=== PATIENT | female | born 1975 | race Caucasian/White ===

== ENCOUNTER 2018-12-16 07:23 | Emergency (ER) | payer MEDICAID ==
[2018-12-16 09:02] LABS: Basophils # (Auto) 0.1 K/mm3 (0.0-0.1); Basophils % (Auto) 1.1 % (0.0-1.8); Eosinophils % (Auto) 0.2 % (0.0-4.3); Hematocrit 37.2 % (30.3-42.9); Hemoglobin 12.8 gm/dl (10.1-14.3); Lymphocytes # (Auto) 2.1 K/mm3 (1.2-5.4); Lymphocytes % (Auto) 20.6 % (13.4-35.0); Mean Corpuscular HGB Conc 34 % (30-34); Mean Corpuscular Volume 90 fl (79-97); Monocytes # (Auto) 0.6 K/mm3 (0.0-0.8); Monocytes % (Auto) 5.9 % (0.0-7.3); Platelet Count 415 K/mm3 (140-440); Red Blood Count 4.14 M/mm3 (3.65-5.03); Red Cell Distribution Width 13.4 % (13.2-15.2)
[2018-12-16] MEDS ORDERED: GEODON IM ONE (09:02)
[2018-12-16 09:07] LABS: BUN/Creatinine Ratio 13; Blood Urea Nitrogen 8 mg/dL (7-17); Calcium 9.1 mg/dL (8.4-10.2); Hemolysis Index 53
[2018-12-16] MEDS ORDERED: WATER FOR INJ Sterile (PF) 10 ML ONE (09:09)
[2018-12-16] MEDS ORDERED: K-DUR PO ONE (09:41)
--- NOTE | 2018-12-16 09:41 | Emergency Department Report ---
HPI - HPI HPI: Mrs. Zamarripa presents to the ER 7 days ago for aggressive behavior [facility]. The patient's 1013 has today and will not be extended. Our psychiatric team recommended referral to [facility] for outpatient psychiatric services. She is stable for discharge. Patient did not have any q uestions or concerns upon my brief evaluation at discharge. <SKYLAR MENA - Last Filed: 12/23/18 13:34> - HPI HPI: 43-year-old female presents to the emergency department, brought in by law enforcement, from her penitentiary for a mental health evaluation. Per law enforcement, and through triage, the patient was acting aggressive and destroying property at the penitentiary that she was previously placed in. The patient denies living in a penitentiary or arriving by law enforcement. When asked why she is at the emergency department, the patient says "there are a lot of people that do not like me who are trying to hurt me and steal my stuff." The patient also says "I am allergic to people." The patient then says that she is going to leave the [facility] and go to [place] and when asked if there is some type of family or support in [place], the patient says "there is snow skiing." Patient displays some rambling and pressured speech. She denies having any medical or psychiatric history but there must be a reason for her living in a penitentiary. <CASH SOLORIO S - Last Filed: 12/25/18 08:25> - General Chief Complaint: Psych Time Seen by Provider: 12/16/18 07:45 ED Past Medical Hx <SKYLAR MENA - Last Filed: 12/23/18 13:34> - Social History Smoking Status: Unknown if ever smoked <CASH SOLORIO - Last Filed: 12/25/18 08:25> - Medications Home Medications: Home Medications Medication Instructions Recorded Confirmed Last Taken Type Unobtainable 12/16/18 12/16/18 Unknown History ED Review of Systems ROS: Stated complaint: MH Other details as noted in HPI <SKYLAR MENA - Last Filed: 12/23/18 13:34> ROS: Stated complaint: MH Other details as noted in HPI Comment: All other systems reviewed and negative Constitutional: denies: chills, fever Eyes: denies: eye pain, vision change ENT: denies: ear pain, throat pain Respiratory: denies: cough, shortness of breath Cardiovascular: denies: chest pain, palpitations Gastrointestinal: denies: abdominal pain, vomiting Genitourinary: denies: dysuria, discharge Musculoskeletal: denies: back pain, arthralgia Neurological: denies: headache, weakness Psychiatric: denies: homicidal thoughts, suicidal thoughts <CASH SOLORIO - Last Filed: 12/25/18 08:25> Physical Exam - Physical Exam Vital Signs: Vital Signs 12/16/18 12/16/18 12/16/18 07:41 13:00 19:00 Temperature 98 F 97.5 F L 98.5 F Pulse Rate 118 H 86 86 Respiratory 18 18 16 Rate Blood Pressure 123/80 Blood Pressure 100/66 132/86 [Right] O2 Sat by Pulse 96 98 99 Oximetry 12/17/18 12/17/18 12/17/18 01:00 07:45 14:35 Temperature 97.0 F L 98.2 F 97.7 F Pulse Rate 98 H 110 H 80 Respiratory 18 20 18 Rate Blood Pressure Blood Pressure 114/66 119/74 90/62 [Right] O2 Sat by Pulse 100 98 100 Oximetry 12/17/18 12/18/18 12/18/18 20:32 02:06 09:22 Temperature 98.6 F 98.3 F 98.3 F Pulse Rate 98 H 77 78 Respiratory 18 18 Rate Blood Pressure Blood Pressure 151/96 112/64 140/81 [Right] O2 Sat by Pulse 99 98 97 Oximetry 12/18/18 12/19/18 12/19/18 12:00 02:11 07:00 Temperature 98.4 F 97.6 F 98.1 F Pulse Rate 89 78 78 Respiratory 18 16 18 Rate Blood Pressure Blood Pressure 121/80 119/73 122/80 [Right] O2 Sat by Pulse 98 96 96 Oximetry 12/19/18 12/19/18 12/20/18 13:00 20:00 01:30 Temperature 98.5 F 98.4 F 97.9 F Pulse Rate 85 75 83 Respiratory 18 18 18 Rate Blood Pressure Blood Pressure 134/98 138/84 105/64 [Right] O2 Sat by Pulse 96 99 96 Oximetry 12/20/18 12/20/18 12/21/18 07:00 21:00 01:00 Temperature 98.5 F 98 F 97.8 F Pulse Rate 73 95 H 93 H Respiratory 18 20 18 Rate Blood Pressure Blood Pressure 115/75 113/80 110/70 [Right] O2 Sat by Pulse 95 96 96 Oximetry 12/21/18 12/21/18 12/21/18 08:40 16:50 19:35 Temperature 98.6 F 98.2 F 97.7 F Pulse Rate 87 96 H 89 Respiratory 18 18 18 Rate Blood Pressure Blood Pressure 100/61 90/48 101/59 [Right] O2 Sat by Pulse 95 98 100 Oximetry 12/22/18 12/22/18 12/22/18 00:00 07:00 13:00 Temperature 98.1 F 97.4 F L 97.2 F L Pulse Rate 71 82 88 Respiratory 18 18 18 Rate Blood Pressure Blood Pressure 131/78 105/60 97/62 [Right] O2 Sat by Pulse 100 96 Oximetry 12/22/18 12/23/18 12/23/18 20:14 01:05 09:28 Temperature 98.0 F 98.2 F 97.6 F Pulse Rate 81 79 78 Respiratory 18 16 Rate Blood Pressure Blood Pressure 104/62 114/78 134/86 [Right] O2 Sat by Pulse 100 97 99 Oximetry <SKYLAR MENA - Last Filed: 12/23/18 13:34> - Physical Exam Vital Signs: Vital Signs 12/16/18 07:41 Temperature 98 F Pulse Rate 118 H Respiratory 18 Rate Blood Pressure 123/80 O2 Sat by Pulse 96 Oximetry Physical Exam: GENERAL: The patient is well-developed well-nourished. HENT: Normocephalic. Atraumatic. Patient has moist mucous membranes. EYES: Extraocular motions are intact. NECK: Supple. Trachea is midline. CHEST/LUNGS: Clear to auscultation. There is no respiratory distress noted. HEART/CARDIOVASCULAR: Regular. There is no tachycardia. There is no murmur. ABDOMEN: There is no abdominal distention. SKIN: Skin is warm and dry. NEURO: The patient is awake, alert, and oriented. The patient is cooperative. The patient has no focal neurologic deficits. Normal speech. MUSCULOSKELETAL: There is no tenderness or deformity. There is no limitation range of motion. There is no evidence of acute injury. PSYCH: Patient expresses delusions and paranoia. She has some pressured speech and tangential thoughts. <SHEAR,CASH S - Last Filed: 12/25/18 08:25> ED Course Vital Signs 12/16/18 12/16/18 12/16/18 07:41 13:00 19:00 Temperature 98 F 97.5 F L 98.5 F Pulse Rate 118 H 86 86 Respiratory 18 18 16 Rate Blood Pressure 123/80 Blood Pressure 100/66 132/86 [Right] O2 Sat by Pulse 96 98 99 Oximetry 12/17/18 12/17/18 12/17/18 01:00 07:45 14:35 Temperature 97.0 F L 98.2 F 97.7 F Pulse Rate 98 H 110 H 80 Respiratory 18 20 18 Rate Blood Pressure Blood Pressure 114/66 119/74 90/62 [Right] O2 Sat by Pulse 100 98 100 Oximetry 12/17/18 12/18/18 12/18/18 20:32 02:06 09:22 Temperature 98.6 F 98.3 F 98.3 F Pulse Rate 98 H 77 78 Respiratory 18 18 Rate Blood Pressure Blood Pressure 151/96 112/64 140/81 [Right] O2 Sat by Pulse 99 98 97 Oximetry 12/18/18 12/19/18 12/19/18 12:00 02:11 07:00 Temperature 98.4 F 97.6 F 98.1 F Pulse Rate 89 78 78 Respiratory 18 16 18 Rate Blood Pressure Blood Pressure 121/80 119/73 122/80 [Right] O2 Sat by Pulse 98 96 96 Oximetry 12/19/18 12/19/18 12/20/18 13:00 20:00 01:30 Temperature 98.5 F 98.4 F 97.9 F Pulse Rate 85 75 83 Respiratory 18 18 18 Rate Blood Pressure Blood Pressure 134/98 138/84 105/64 [Right] O2 Sat by Pulse 96 99 96 Oximetry 12/20/18 12/20/18 12/21/18 07:00 21:00 01:00 Temperature 98.5 F 98 F 97.8 F Pulse Rate 73 95 H 93 H Respiratory 18 20 18 Rate Blood Pressure Blood Pressure 115/75 113/80 110/70 [Right] O2 Sat by Pulse 95 96 96 Oximetry 12/21/18 12/21/18 12/21/18 08:40 16:50 19:35 Temperature 98.6 F 98.2 F 97.7 F Pulse Rate 87 96 H 89 Respiratory 18 18 18 Rate Blood Pressure Blood Pressure 100/61 90/48 101/59 [Right] O2 Sat by Pulse 95 98 100 Oximetry 12/22/18 12/22/18 12/22/18 00:00 07:00 13:00 Temperature 98.1 F 97.4 F L 97.2 F L Pulse Rate 71 82 88 Respiratory 18 18 18 Rate Blood Pressure Blood Pressure 131/78 105/60 97/62 [Right] O2 Sat by Pulse 100 96 Oximetry 12/22/18 12/23/18 12/23/18 20:14 01:05 09:28 Temperature 98.0 F 98.2 F 97.6 F Pulse Rate 81 79 78 Respiratory 18 16 Rate Blood Pressure Blood Pressure 104/62 114/78 134/86 [Right] O2 Sat by Pulse 100 97 99 Oximetry <SKYLAR MENA - Last Filed: 12/23/18 13:34> Vital Signs 12/16/18 07:41 Temperature 98 F Pulse Rate 118 H Respiratory 18 Rate Blood Pressure 123/80 O2 Sat by Pulse 96 Oximetry <CASH SOLORIO - Last Filed: 12/25/18 08:25> ED Medical Decision Making - Lab Data Result diagrams: 12/16/18 08:29 12/16/18 08:29 <SKYLAR MENA - Last Filed: 12/23/18 13:34> - Lab Data Result diagrams: 12/16/18 08:29 12/16/18 08:29 - Medical Decision Making Patient presents from her penitentiary after allegedly becoming very agitated and destroying some of the property. The patient denies being at a penitentiary, arriving by law enforcement, having any psychiatric history. She expresses some obvious delusions and paranoia. She has some pressured speech and tangential thoughts. Overall the patient appears to be having some acute psychosis. For this reason she has been made a 1013. She required some Geodon, then Ativan, and some Benadryl to try and treat her agitation and psychosis. Labs have been mostly unremarkable except for some mild hypokalemia that was replaced with potassium chloride. Vital signs stable throughout her ED course. The patient is medically clear for psychiatric placement. - Differential Diagnosis bipolar disorder, schizophrenia, schizoaffective, substance abuse <CASH SOLORIO - Last Filed: 12/25/18 08:25> Critical care attestation.: If time is entered above; I have spent that time in minutes in the direct care of this critically ill patient, excluding procedure time. <SKYLAR MENA - Last Filed: 12/23/18 13:34> Critical Care Time: No Critical care attestation.: If time is entered above; I have spent that time in minutes in the direct care of this critically ill patient, excluding procedure time. <CASH SOLORIO - Last Filed: 12/25/18 08:25> ED Disposition Is pt being admited?: No Does the pt Need Aspirin: No <SKYLAR MENA - Last Filed: 12/23/18 13:34> Is pt being admited?: No Time of Disposition: 15:27 <CASH SOLORIO - Last Filed: 12/25/18 08:25> Clinical Impression: Acute psychosis, Aggressive behavior Disposition: DC-01 TO HOME OR SELFCARE Condition: Stable Referrals: DONNA BUSTOS MD [Primary Care Provider] - 3-[address] [facility] [Outside] - 3-5 Days
[2018-12-16 10:51] LABS: Bacteria,Urine 1+ /HPF (Negative); Bilirubin,Urine NEG (Negative); Blood,Urine NEG (Negative); Color,Urine Yellow (Yellow); Mucus,Urine 2+ /HPF; Protein,Urine <15 mg/dL mg/dL (Negative); Urobilinogen,Urine < 2.0 mg/dL (<2.0)
[2018-12-16 10:56] LABS: Amphetamine Screen,Urine PRESUMPTIVE NEGATIVE; Benzodiazepines Screen,Urine PRESUMPTIVE NEGATIVE; Cannabinoid Screen,Urine PRESUMPTIVE NEGATIVE; Cocaine Screen,Urine PRESUMPTIVE NEGATIVE; Methadone Screen,Urine PRESUMPTIVE NEGATIVE; Opiate Screen,Urine PRESUMPTIVE NEGATIVE
[2018-12-16] MEDS ORDERED: ATIVAN IM ONE (11:16)
[2018-12-16] MEDS ORDERED: BENADRYL PO ONE (13:25)
[2018-12-17] MEDS ORDERED: GEODON IM ONE (12:57)
[2018-12-17] MEDS ORDERED: ATIVAN IV ONE (12:58)
[2018-12-17] MEDS ORDERED: WATER FOR INJ Sterile (PF) 10 ML ONE (13:04)
--- NOTE | 2018-12-17 15:20 | Consultation ---
History of Present Illness - Reason for Consult Consult date: 12/17/18 Reason for consult: psychiatric evaluation - Chief Complaint Chief complaint: "I want to sit out here." - History of Present Psychiatric Illness 43yo SWF who presents to [facility] ED via law enforcement for displaying aggressive behavior and destroying property at the long-term. She denies living in a long-term or that she was brought to ED by law enforceme nt. She states people are taking her belongings and asked what we are going to do about it. She states she lives alone and would not elaborate on who might be taking her belongings. She states, "I don't have mental health problems." She states she is "allergic to all medicines." She states she will not take medication. Prior to receiving PRN geodon, ativan, and benadryl, she was reported to exhibit loud, pressured speech with tangential thoughts and intermittent loose associations. Currently she is tangential, disorganized, and requires redirection. She is also suspicious of this provider's intentions in asking her questions. Medications and Allergies Allergies Allergy/AdvReac Type Severity Reaction Status Date / Time No Known Allergies Allergy Unverified 12/17/18 12:57 Home Medications Medication Instructions Recorded Confirmed Last Taken Type Unobtainable 12/16/18 12/16/18 Unknown History Past psychiatric history - Past Medical History Past Medical History: other ("I have kidney failure; I've been working since I was 16, I'm tired, that's why.") - past Psychiatric treatment and history psychiatric treatment history: lives in a long-term admits to having "disabilities" but would not discuss - Social History Social history: other (long-term. denies alcohol, drug, or tobacco use) Mental Status Exam - Vital signs Last Vital Signs Temp 98.2 F 12/17/18 07:45 Pulse 110 H 12/17/18 07:45 Resp 20 12/17/18 07:45 BP 119/74 12/17/18 07:45 Pulse Ox 98 12/17/18 07:45 - Exam Orientation: time, place, person Affect: agitated Mood: congruent with affect Thought content: delusions, paranoia Thought Process: Tangential, Disorganized Perceptions: other (would not discuss) Speech: normal rate and pattern Concentration: distractible Motor activity: restless Level of consciousness: alert Sleep Symptoms: Difficulty Falling Asleep ("I don't get rest.") Interaction: guarded, defensive Results Result Diagrams: 12/16/18 08:29 12/16/18 08:29 All other labs normal. Assessment and Plan Assessment and plan: Impression: psychosis unspecified ddx: schizophrenia, bipolar with psychosis She does not have Medicare psych days which indicates a history of multiple prior psych admissions. BMP was unremarkable except for potassium of 3.2 (treated with K-Dur). reports of "kidney failure" is unsubstantiated. delusional UDS neg ETOH <0.01 Recommendations: start antipsychotic, Seroquel 100mg hs, but she refuses dispo: inpatient psychiatric facility will staff with Dr. Ordonez
[2018-12-18 08:43] LABS: Chol/HDL Ratio 4.22 %
--- NOTE | 2018-12-18 09:01 | Progress Note ---
Subjective - Reason for Consult Consult date: 12/18/18 Reason for consult: Psychiatry Follow-up - Chief Complaint Chief complaint: "They are taking my belongings" 43 y.o. white female who presented to the ER for aggressive behavior at her residence. Today the patient was irritable during the assessment. She is adamant that someone or something is taking her belongings. She had to be redirected several times to keep her on topic. Overall, the patient is a poor historian, No gestures of SI/HI's. Mental Status Exam - Vital signs Last Vital Signs Temp 98.3 F 12/18/18 02:06 Pulse 77 12/18/18 02:06 Resp 18 12/18/18 02:06 BP 112/64 12/18/18 02:06 Pulse Ox 98 12/18/18 02:06 - Exam Narrative exam: MSE: Appearance: in hospital attire Behavior: regular eye contact Speech: regular rate and tone Mood: irritable Affect: congruent to mood Thought Process: tangential Thought Content: no gestures of SI/HI's, delusional Motor Activity: laying in bed Cognition: A/O x3 Insight: poor Judgment: unable to assess Assessment and Plan Impression: Unspecified Psychosis. Today the patient was irritable during the assessment. DDx: schizophrenia, Bipolar DO with psychosis Recommendation/Plan: Continue 1013 and increase Seroquel to 200 mg PO HS for psychosis. Attempted to discuss possible metabolic side effects of Seroquel with the patient. Also, attempted to discuss with the patient her abnormal Lipid Panel. Dispo: The patient was referred to inpatient psy services. Staffed with Dr Roxana Ordonez.
[2018-12-18] MEDS ORDERED: ATIVAN ONE (11:57)
[2018-12-18] MEDS ORDERED: ATIVAN PO ONE (12:03)
[2018-12-18] MEDS ORDERED: GEODON IM ONE ×2 (13:42→13:49)
--- NOTE | 2018-12-19 10:52 | Progress Note ---
Subjective - Reason for Consult Consult date: 12/19/18 Reason for consult: Psychiatry Follow-up - Chief Complaint Chief complaint: "Hello" 43 y.o. white female who presented to the ER for aggressive behavior at her residence. Today the patient was calm during the assessment. Her answers to questions were not logical. She has loose associations throughout the interview. Overall, the patient is a poor historian, No gestures of SI/HI's. Mental Status Exam - Vital signs Last Vital Signs Temp 98.1 F 12/19/18 07:00 Pulse 78 12/19/18 07:00 Resp 18 12/19/18 07:00 BP 122/80 12/19/18 07:00 Pulse Ox 96 12/19/18 07:00 - Exam Narrative exam: MSE: Appearance: in hospital attire Behavior: regular eye contact Speech: regular rate and tone Mood: "okay" Affect: congruent to mood Thought Process: tangential Thought Content: no gestures of SI/HI's, delusional Motor Activity: laying in bed Cognition: A/O x3 Insight: poor Judgment: poor Assessment and Plan Impression: Unspecified Psychosis. Today the patient was calm during the assessment. DDx: schizophrenia, Bipolar DO with psychosis Recommendation/Plan: Continue 1013 and Seroquel 200 mg PO HS for psychosis. Attempted to discuss possible metabolic side effects of Seroquel with the patient. Also, attempted to discuss with the patient her abnormal Lipid Panel. Dispo: The patient was referred to inpatient psy services. Will staff with Dr Roxana Ordonez.
[2018-12-19] MEDS ORDERED: GEODON IM ONE ×2 (17:35→17:50)
[2018-12-20] MEDS ORDERED: ATIVAN ONE (13:52)
[2018-12-20] MEDS ORDERED: WATER FOR INJ Sterile (PF) 10 ML ONE (13:54)
[2018-12-20] MEDS ORDERED: GEODON IM ONE ×2 (13:54→13:58)
[2018-12-20] MEDS ORDERED: ATIVAN IM ONE (13:58)
--- NOTE | 2018-12-20 18:09 | Progress Note ---
Subjective - Reason for Consult Consult date: 12/20/18 Reason for consult: Psychiatric Follow-up Evaluation - Chief Complaint Chief complaint: Patient asleep. Patient is a 43 y.o. white female who presented to the ER for aggressive behavior at her residence. Today the patient is asleep. Provider attempted to awake patient on several occasions, but she refuses to awake and allow provider to assess her. Per assigned RN, patient was agitated earlier in the day. She has made several attempts to elope. Received PRN at approximately 1400. Mental Status Exam - Vital signs Last Vital Signs Temp 98.5 F 12/20/18 07:00 Pulse 73 12/20/18 07:00 Resp 18 12/20/18 07:00 BP 115/75 12/20/18 07:00 Pulse Ox 95 12/20/18 07:00 - Exam Narrative exam: Unable to assess due to patient's condition. Assessment and Plan Impression: Unspecified Psychosis. Today the patient is asleep, refuses to awake after several attempts. Provider unable to assess. DDx: schizophrenia, Bipolar DO with psychosis Recommendation/Plan: 1. Continue 1013. 2. Continue Seroquel 200 mg PO HS for psychosis. Attempted to discuss possible metabolic side effects of Seroquel with the patient. Also, attempted to discuss with the patient her abnormal Lipid Panel. Disposition: The patient was referred to inpatient psychiatric services. Will staff with Dr. Roxana Ordonez.
--- NOTE | 2018-12-21 10:47 | Progress Note ---
Subjective - Reason for Consult Consult date: 12/21/18 Reason for consult: Psychiatry Follow - Chief Complaint Chief complaint: "They are stealing from me" Patient is a 43 y.o. white female who presented to the ER for aggressive behavior at her residence. Today the patient was irritable during the assessment. She continue to present with paranoid behavior. Per the notes, the patient refused refused her vital signs yesterday. She would not confirm or deny SI/HI's. No indications of side effects from her medication. Mental Status Exam - Vital signs Last Vital Signs Temp 97.8 F 12/21/18 01:00 Pulse 93 H 12/21/18 01:00 Resp 18 12/21/18 01:00 BP 110/70 12/21/18 01:00 Pulse Ox 96 12/21/18 01:00 - Exam Narrative exam: MSE: Appearance: in hospital attire Behavior: regular eye contact Speech: regular rate and tone Mood: irritable Affect: congruent to mood Thought Process: tangential Thought Content: unable to assess, paranoia, delusional Motor Activity: laying in bed Cognition: A/O x3 Insight: poor Judgment: poor Assessment and Plan Impression: Unspecified Psychosis. Today the patient was irritable during the assessment. DDx: schizophrenia, Bipolar DO with psychosis Recommendation/Plan: Continue 1013 and increase Seroquel to 300 mg PO HS for psychosis and start Depakote 500 mg PO BID for mood. Attempted to discuss possible metabolic side effects of Seroquel with the patient. Also, attempted to discuss with the patient her abnormal Lipid Panel. Dispo: The patient was referred to inpatient psy services. Will staff with Dr Roxana Ordonez.
[2018-12-21 11:36] LABS: Alanine Aminotransferase 15 units/L (7-56)
--- NOTE | 2018-12-22 16:08 | Progress Note ---
Subjective - Reason for Consult Consult date: 12/22/18 Reason for consult: Psychiatry Follow-up - Chief Complaint Chief complaint: "Tommy" Patient is a 43 y.o. white female who presented to the ER for aggressive behavior at her residence. Today the patient was calm and cooperative during the assessment. She was more engaging. She stated that she would prefer to [facility] when discharged. She denies SI/HI's and AVH's. She denies any side effects from her medication. Mental Status Exam - Vital signs Last Vital Signs Temp 97.2 F L 12/22/18 13:00 Pulse 88 12/22/18 13:00 Resp 18 12/22/18 13:00 BP 97/62 12/22/18 13:00 Pulse Ox 96 12/22/18 13:00 - Exam Narrative exam: MSE: Appearance: calm, cooperative Behavior: regular eye contact Speech: regular rate and tone Mood: "okay" Affect: congruent to mood Thought Process: circumstantial Thought Content: denies SI/HI's and AVH's Motor Activity: laying in bed Cognition: A/O x3 Insight: variable to fair Judgment: variable to fair Assessment and Plan Impression: Unspecified Psychosis. Today the patient was calm and cooperative during the assessment. DDx: schizophrenia, Bipolar DO with psychosis Recommendation/Plan: Reevaluate the patient's 1013 in 24 hours. Continue Seroquel 300 mg PO HS for psychosis and Depakote 500 mg PO BID for mood. Discussed possible metabolic side effects of Seroquel with the patient, she verbalized understanding. Dispo: If the patient's 1013 is rescinded in 24 hours, she can follow up with [facility] for outpatient psy services. Staffed with Dr Roxana Ordonez.
[2018-12-23 09:29] VITALS: BP 134/86
--- NOTE | 2018-12-23 10:12 | Progress Note ---
Subjective - Reason for Consult Consult date: 12/23/18 Reason for consult: Psychiatry Follow-up - Chief Complaint Chief complaint: "I'm ready to leave" Patient is a 43 y.o. white female who presented to the ER for aggressive behavior at her residence. Today the patient was calm and cooperative during the assessment. She is adamant that she is "okay." She is concerned abou the whereabouts of her . Per the notes, no behavioral disturbances overnight by the patient. She denies SI/HI's and AVH's. She denies any side effects from her medication. Mental Status Exam - Vital signs Last Vital Signs Temp 97.6 F 12/23/18 09:28 Pulse 78 12/23/18 09:28 Resp 16 12/23/18 01:05 BP 134/86 12/23/18 09:28 Pulse Ox 99 12/23/18 09:28 - Exam Narrative exam: MSE: Appearance: calm, cooperative Behavior: regular eye contact Speech: regular rate and tone Mood: "okay" Affect: congruent to mood Thought Process: circumstantial Thought Content: denies SI/HI's and AVH's Motor Activity: laying in bed Cognition: A/O x3 Insight: fair Judgment: fair Assessment and Plan Impression: Unspecified Psychosis. No overt psychosis with the patient. Today the patient was calm and cooperative during the assessment. DDx: schizophrenia, Bipolar DO with psychosis Recommendation/Plan: The patient's 1013 today and will not be extended. Continue Seroquel 300 mg PO HS for psychosis and Depakote 500 mg PO BID for mood. Discussed possible metabolic side effects of Seroquel with the patient, she verbalized understanding. Case Mgmt involvement, the patient may need assistance with placement. Dispo: The patient can follow up with [facility] for outpatient psy services. Will staff with Dr Roxana Ordonez.
== END 2018-12-23 14:00 | disposition home or self-care (01) ==
LOC: EEVIPCON 07:23 → ED 07:23
DX: R46.89 Other symptoms and signs involving appearance and behavior (principal)
CPT/HCPCS: 36415; 80048; 80061; 80164; 80307; 81001; 82150; 83036; 83690; 84075; 84450; 84460; 84703; 85025; 96372; 96374; 99284; J2060; J3486; 80320; 99285; G0480